=== PATIENT | female | born 1965 | race Caucasian/White ===

== ENCOUNTER 2024-10-20 17:07 | Outpatient (AMB) | payer OTHER, SELFPAY ==
--- NOTE | 2024-10-20 17:09 | MHC.PC.OV ---
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 Accompanied by: Self / Same As Patient Allergies morphine Allergy (Severe, Verified 10/20/24 17:24) Headache Sulfa (Sulfonamide Antibiotics) Allergy (Mild, Verified 10/20/24 17:24) rash Medication List - Last Reconciled 10/20/24 by Sonia Bianchi MD alprazolam 0.5 mg PO DAILY cholecalciferol (vitamin D3) 1,250 mcg PO QWEEK hydrochlorothiazide 25 mg PO DAILY 90 days magnesium citrate 100 mg PO DAILY multivitamin caps PO omeprazole 20 mg PO DAILY trazodone 50 mg PO BEDTIME Tobacco use date assessed: 10/20/24 Dental Screening Dental Screen Date: 10/20/24 Did you have a dental visit in the last 12 months?: Yes Did you have a dental problem in the last 6 months where you did not have access to dental care?: No Was dental information given to patient?: Patient has dentist HPI HPI Comments History of Present Illness Details This is a 59-year-old female with hypertension, mild major depression and anxiety that comes today to establish care. The depression is very very mild and is well control. No need for counseling or medication at the moment. Anxiety stable with benzodiazepines as needed and she is aware can cause memory loss. She complains of a right foot lesion that has been present for months and will be referred to Podiatry. She also has skin lesion that was removed about a year ago and needs follow-up with dermatology. She also complains of occasional chest pain pressure like in quality in the middle of the chest that can happen at rest. She also has GERD stable with PPIs. [facility]LY [facility] Surgical History History of tubal ligation History of cholecystectomy History of tonsillectomy Family History Mother COPD (chronic obstructive pulmonary disease) Emphysema, unspecified Hypertension Father Substance use disorder Social History Housing: House Alcohol intake: current Alcohol intake frequency: a few times a month Alcohol type: wine and other Patient Tobacco Use Status: Former Tobacco user Tobacco use type: Cigarette e-Cigarette/Vaping Use: Never Used Second Hand Smoke Exposure: No service: No Current occupational status: employed Cognitive needs: No Hearing needs: No Vision needs: Yes Questionnaire PHQ-9 Over the last 2 weeks, how often have you been bothered by any of the following problems? 1. Little interest or pleasure in doing things: not at all 2. Feeling down, depressed, or hopeless: several days 3. Trouble falling or staying asleep, or sleeping too much: nearly every day 4. Feeling tired or having little energy: more than half the days 5. Poor appetite or overeating: not at all 6. Feeling bad about yourself - or that you are a failure or have let yourself or your family down: not at all 7. Trouble concentrating on things, such as reading the newspaper or watching television: not at all 8. Moving or speaking so slowly that other people could have noticed. Or the opposite - being so fidgety or restless that you have been moving around a lot more than usual: not at all 9. Thoughts that you would be better off or of hurting yourself in some way: not at all Total score: 6 Depression Screening Interpretation: Positive Depression Screening Follow-up: Existing condition and Follow-up Visit Requested Depression Screening Done: Yes 00523 - PHQ-9 Billing: Yes Source: Developed by Drs. Kahlil Elias, Tere Richardson, Rylan Shah and colleagues, with an educational manuelito from [employer]. Thrive Questionnaire Date Thrive assessed: 10/20/24 I am a: Patient What is your living situation today?: I have a steady place to live Within the past 12 months, did the food you bought not last and you didn't have the money to get more?: Never true Within the past 12 months, did you worry whether your food would run out before you got money to buy more?: Never true Do you have trouble paying for medicines?: No Do you have trouble getting transportation to medical appointments?: No Do you have trouble paying your heating and electricity bill?: No Do you have trouble taking care of your child, family member or friend?: No Do you have trouble with day-to-day activities such as bathing, preparing meals, shopping, managing finances, etc.?: No Are you currently unemployed and looking for a job?: No Are you interested in more education?: No Please select the resources that you would like help with: None Currently or been in a relationship where the following occur: No concerns reported and I choose not to answer THRIVE Score: 0 AUDIT C Alcohol Use Questionnaire (AUDIT-C) 1. How often do you have a drink containing alcohol?: 2-4 times a month 2. How many drinks containing alcohol do you have on a typical day when you are drinking?: 1 or 2 3. How often do you have six or more drinks on one occasion?: Never Total Score: 2 BRUCE-7 AMB Questionnaire BRUCE-7 Date BRUCE - 7 assessed: 10/20/24 Feeling nervous, anxious, or on edge: 2 = More than half the days Not being able to stop or control worryin = More than half the days Worrying too much about different things: 2 = More than half the days Trouble relaxin = More than half the days Being so restless that it is hard to sit still: 0 = Not at all Becoming easily annoyed or irritable: 2 = More than half the days Feeling afraid as if something awful might happen: 1 = Several days Total BRUCE-7 score (0-4 normal; 5-9 mild; 10-14 moderate; 15-21 severe): 11 Source: Developed by Drs. Kahlil Elias, Tere Richardson, Rylan Shah and colleagues, with an educational manuelito from [employer]. BRUCE-7 Assessment Billing BRUCE-7 Assessment Tool: BRUCE-7 Assessment 81148 Review of Systems Const All systems reviewed & are unremarkable except as noted in HPI and below Card Denies chest pain at rest, Denies chest pain with activity, Denies edema, Denies irregular heart rhythm, Denies claudication, Denies dyspnea, Denies dyspnea on exertion, Denies orthopnea, Denies paroxysmal nocturnal dyspnea and Denies slow heart rate Resp Denies cough, Denies dyspnea and Denies dyspnea on exertion GI Denies abdominal pain, Denies change in bowel habits, Denies excessive flatus, Denies nausea and Denies vomiting Denies urinary incontinence, Denies urinary hesitancy and Denies urinary urgency Musc Denies abnormal gait, Denies atrophy, Denies deformity and Denies limited range of motion Skin/Breast Denies bleeding lesions, Denies changing lesions and Denies rash Neuro Denies abnormal gait, Denies behavioral changes and Denies lack of coordination Psych Denies behavioral changes Physical exam (Primary Care) Vital Signs: Last Vital Signs BP 158/76 H 10/20/24 17:11 BMI result Body Mass Index 28.0 Tobacco/Smoking Status: Tobacco use Status Tobacco use date assessed 10/20/24 10/20/24 17:22 Patient Tobacco Use Status Former Tobacco user 10/20/24 17:22 Tobacco use type Cigarette 10/20/24 17:22 e-Cigarette/Vaping Use Never Used 10/20/24 17:22 PHQ-9: PHQ-9 Score PHQ-9: Total score 6 10/20/24 17:30 Depression Screening Interpretation: Positive Depression Screening Follow-up: Existing condition and Follow-up Visit Requested Thrive Assessment: Date of Thrive Assessment Date Thrive assessed 10/20/24 10/20/24 17:22 Currently or been in a relationship where the following occur: No concerns reported and I choose not to answer Resp Effort & Inspection: normal respiratory effort Auscultation: clear to auscultation bilaterally Cardio Jugular venous distension: no JVD Rate: regular rate Rhythm: regular rhythm Heart sounds: S1 normal heart sound present and S2 normal heart sound present Extrem General: Yes full ROM Coding Level of Care Code New Pt Level 4 (86385) Complex EM visit Add On G2211 Diagnoses BRUCE (generalized anxiety disorder) F41.1 Mild major depression F32.0 Essential hypertension I10 Skin lesion L98.9 Foot lesion L98.9 Chest pain R07.9 Additional Codes BRUCE-7 Assessment Billing - BRUCE-7 Assessment Tool: BRUCE-7 Assessment 53738 ([id number]) PHQ-9 - 09380 - PHQ-9 Billing: Yes ([id number]) Time Spent (min) 23 Assessment & Plan Assessment & Plan (1) BRUCE (generalized anxiety disorder): Code(s): F41.1 - Generalized anxiety disorder Category: Medical (2) Mild major depression: Code(s): F32.0 - Major depressive disorder, single episode, mild Category: Medical (3) Essential hypertension: Code(s): I10 - Essential (primary) hypertension Category: Medical (4) Skin lesion: Code(s): L98.9 - Disorder of the skin and subcutaneous tissue, unspecified Category: Medical (5) Foot lesion: Code(s): L98.9 - Disorder of the skin and subcutaneous tissue, unspecified Category: Medical (6) Chest pain: Code(s): R07.9 - Chest pain, unspecified Category: Medical Plan Continue current medications. EKG order for chest pain. Referred to Podiatry for foot lesion. Referred to dermatology for skin lesion. Fasting labs ordered. Mammogram was done less than a year ago and was normal. Colonoscopy up-to-date. Also had endoscopy due to heartburn. Pap smear also up-to-date. Orders: Orders XR foot RT 2V 10/20/24 L98.9 - Disorder of the skin and subcutaneous tissue, unspecified ECG 12 lead EKG 10/20/24 I10 - Essential (primary) hypertension, R07.9 - Chest pain, unspecified Lipid Panel 10/20/24 E78.5 - Hyperlipidemia, unspecified, I10 - Essential (primary) hypertension Vitamin D 25-OH Total 10/20/24 E55.9 - Vitamin D deficiency, unspecified Comprehensive [place]. Panel Fast 10/20/24 I10 - Essential (primary) hypertension Referrals Podiatry Referral L98.9 - Disorder of the skin and subcutaneous tissue, unspecified Dermatology Referral L98.9 - Disorder of the skin and subcutaneous tissue, unspecified Medications: New alprazolam 0.5 mg PO DAILY 30 days 30 tabs 0RF
[2024-10-20 17:11] VITALS: BP 158/76; BMI 28.0
--- OUTSIDE RECORDS SUMMARY | 2024-10-20 18:21 | XMS_ITS | Referral Summary ---
Author Organization [facility] Address [address] [place] [address] Care Team Providers Care Insert Cutter Name Role Phone Cassandra Louise MD Primary Care Provider [phone]- [phone] Encounters Date Type Department Care Team Description 10/06/2024 [facility] Message [facility] D[facility]atology [address] [place] [address] Leidy Post PA Re-scheduling October 17, 2024 Appointment 07/21/2024 [facility] Message [address] [address] Mychart, Generic Provider Release of Medical records form from Last 3 Months Allergies Active Allergy Reactions Criticality Noted Date Comments Acetazolamide Unknown Nitrofurantoin Monohyd/M-Cryst Rash High 04/02/2021 Petechial rash 04/02/2021 Sulfa (Sulfonamide Antibiotics) Unknown Medications magnesium citrate 100 mg capsule Take by mouth. Active cholecalciferol (VITAMIN D3) 1,250 mcg (50,000 unit) capsule Take 50,000 Units by mouth once a week. Active multivitamin capsule Take 1 capsule by mouth once a day. Active omeprazole OTC (PriLOSEC OTC) 20 mg EC tablet Take 1 tablet (20 mg total) by mouth once a day. 30 tablet 08/05/19 Active hydroCHLOROthiazid e (HYDRODIURIL) 25 mg tablet Take 1 tablet (25 mg total) by mouth once a day. 90 tablet 3 08/26/19 24 Active meclizine (ANTIVERT) 25 mg tablet Take 1 tablet (25 mg total) by mouth 3 times a day as needed for dizziness. 30 tablet 1 08/26/19 24 Active Additional Information Patient not taking.Reported on 03/30/2024 ALPRAZolam (XANAX) 0.5 mg tablet Take 1 tablet (0.5 mg total) by mouth daily as needed for anxiety. 30 tablet 1 10/07/19 24 Active traZODone (DESYREL) 50 mg tablet Take 1 tablet (50 mg total) by mouth nightly as needed for sleep. 30 tablet 5 03/30/20 24 Active RIMEGEPANT ODT (NURTEC ODT) 75 MG DISINTEGRATING TABLETIndications: Migraine without status migrainosus, not intractable, unspecified migraine type Dissolve 1 tablet (75 mg total) in the mouth daily as needed (migraine). 16 tablet 5 03/31/20 24 Active Active Problems Problem Noted Date Diagnosed Date Trouble in sleeping 03/31/2024 Vertigo 08/27/2023 Hypertension 08/27/2023 Left hip pain 03/12/2021 Seborrheic keratoses, inflamed 03/26/2017 Urinary tract infection 10/15/2016 Pharyngitis 09/22/2016 Anxiety, generalized 07/04/2016 Colon cancer screening 03/25/2016 Seborrheic keratosis 03/18/2016 Neoplasm of uncertain behavior 02/13/2014 Allergic rhinitis 10/04/2013 Headache 10/04/2013 Esophageal reflux 01/20/2013 Urinary incontinence 11/02/2012 Pain, joint, shoulder 06/01/2012 Abdominal pain 06/01/2012 Chronic sinusitis 09/09/2008 Acne 09/09/2008 Migraine headache 09/09/2008 Lumbago 09/09/2008 Resolved Problems Problem Noted Date Diagnosed Date Resolved Date White coat syndrome with hypertension 2016 10/07/2023 Immunizations Immunization Administration Dates Next Due Covid-19, Pfizer, mRNA, [place] valent, PF 30 mcg/0.3 mL dose (for ages 12 and older) 09/11/2020,08/14/2020 Diphtheria and Tetanus Toxoi ds, Adsorbed for Pediatric Use 06/08/2003,11/27/1997 INFLUENZA, SPLIT VIRUS, TRIVALENT, PF 03/25/2016 ,05/16/2014,01/20/2013 Influenza, Injectable, Madin Chloé Canine Kidney, Preservative Free, Quadrivalent 02/21/2022 Influenza, Injectable, Quadr ivalent, Contains Preservative 04/24/2023,03/11/2021,04/12/2020,2017 Influenza, Trivalent, MDV, Injectable 03/30/2024 Measles, Mumps, and Rubella Vaccine 06/27/2000,0 06/25/2000 Tetanus Toxoid, Reduced Diph theria Toxoid, and Acellular Pertussis Vaccine, Adsorbed 11/09/2017 Tuberculin Skin Test; Purifi ed Protein Derivative Solution, Intradermal 09/07/1995 Zoster Vaccine Recombinant 05/01/2022,02/21/2022 Social History Tobacco Use Types Packs/Day Years Used Date Smoking Tobacco: Former Smokeless Tobacco: Former Tobacco Cessation:Counseling Given: Not Answered Comments:: Alcohol Use Standard Drinks/Week Comments Yes 1 (1 standard drink = 0.6 oz pur e alcohol) socially [facility] blogTVities Answer Date Recorded In the past 12 months has th e electric, gas, oil, or water company threatened to shut off services in your home? No 09/28/2023 Hunger Vital Sign Answer Date Recorded Within the past 12 months, y ou worried that your food would run out before you got the money to buy more. Never true 09/28/19 24 Within the past 12 months, t he food you bought just didn't last and you didn't have money to get more. Never true 09/28/2023 Transportation Answer Date Recorded In the past 12 months, has l ack of reliable transportation kept you from medical appointments, meetings, work or from getting things needed for daily living? No 09/28/2023 Housing Answer Date Recorded Housing Risk Low 2 09/28/2023 Housing Risk Medium Not on file 09/28/2023 Housing Risk High Not on file 09/28/2023 What is your living situation today? 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 Not on file Not on file Last Filed Vital Signs Vital Sign Reading Time Taken Comments Blood Pressure 138/88 03/30/2024 2:55 PM EST Pulse 83 03/30/2024 2:55 PM EST Temperature 36.7 ??C (98 ??F) 03/30/2024 2:55 PM EST Respiratory Rate 18 03/30/2024 2:55 PM EST Oxygen Saturation 98% 03/30/2024 2:55 PM EST Inhaled Oxygen Concentration - - Weight 76.9 kg (169 lb 9.6 oz) 03/30/2024 2:55 P M EST Height 165.1 cm (5' 5 ) 08/03/2023 11:57 AM EDT Body Mass Index 28.22 08/03/2023 11:57 AM EDT Plan of Treatment Upcoming Encounters Date Type Department Care Team (Late st Contact Info) Description 10/27/2024 9:00 AM EDT Office Visit [facility] Dermatology [address] [place] [address] Leidy Post PA [address] [place] [id number] 01/02/2025 8:00 AM EDT Appointment [facility] Mammography [address] [place] [address] 04/13/2025 8:30 AM EST Office Visit [facility] [address] Department [address] [facility] [place] [address] Miladys Neal MD [address] [place] [address] Procedures * Due to [place] state law, this organization might not be sharing negative HIV tests. Procedure Name Priority Date/Time Associated Diagnosis Comments BLAYNE BILATERAL SCREENING DIGITAL MAMMOGRAM WITH MASON Routine 12/28/2023 8:05 AM EDT Encounter for screening mammogram for malignant neoplasm of breast BASIC METABOLIC PANEL Routine 10/06/2023 8:48 AM EDT Hypertension, unspecified type Hypokalemia [facility] PAP TEST AND HPV, MRNA E6/E7 Routine 03/09/2023 3:43 PM EDT Encounter for gynecological examination without abnormal finding Screening for cervical cancer COLONOSCOPY 02/11/2021 HEPATITIS C ANTIBODY, CONVERSION Routine 02/09/2012 12:15 PM EDT from Last 3 Months or Most Recently Relevant to Health Maintenance Results * Due to [place] state law, this organization might not be sharing negative HIV tests. * BLAYNE Bilateral Screening Digital Mammogram With Mason (12/28/2023 8:05 AM EDT) Anatomical Region Laterality Modality Breast Bilateral Mammography Narrative 01/03/2024 3:44 PM EDT EXAMINATION BLAYNE Bilateral Screening Digital Mammogram With Mason. INDICATION Mellissa Hurley is a 58 y.o. female and is seen for: BLAYNE Bilateral Screening Digital Mammogram With Mason. CC and MLO views were obtained. FDA approved Transpara?? AI (artificial intelligence) software and R2 CAD were used as a concurrent reading aid in the interpretation of this study. COMPARISON Compared to: 12/19/2022 BLAYNE Bilateral Screening Digital Mammogram With Mason, 12/09/2021 BLAYNE Bilateral Screening Digital Mammogram With Mason, 12/03/2020 BLAYNE Bilateral Screening Digital Mammogram, 12/01/2019 BLAYNE Bilateral Screening Digital Mammogram, and 11/29/2018 BLAYNE Bilateral Screening Digital Mammogram Bilateral Breast Findings: There are scattered areas of fibroglandular density. No significant masses, calcifications or other abnormalities are seen. IMPRESSION BI-RADS?? ATLAS category (overall): 1 - Negative MANAGEMENT Routine Screening Mammogram in 1 Year is recommended for bilateral. ??The patient was entered into a reminder system with a target date for their next mammogram. Patient has a TYRER CUZICK RISK ASSESSMENT SCORE of Tyrer-Cuzick: 8.14%. If the personal lifetime risk is more than 20%, according to ACS, NCCN and ACR guidelines, annual screening breast MRI is recommended in addition to annual mammography. If this radiology report contains a blank impression section, it is an incomplete radiology report. ??Please contact the interpreting radiologist or applicable radiology division as soon as possible to obtain the completed interpretation. Cassandra Louise MD IMG BI PROCEDURES Final Re sult * (ABNORMAL) Basic Metabolic Panel (10/06/2023 8:48 AM EDT) Glucose 112(H) 65 - 99 mg/dL 10/06/2023 6:37 PM [employer] [facility] Comment: ? Fasting reference interval For someone without known diabetes, a glucose value between 100 and 125 mg/dL is consistent with prediabetes and should be confirmed with a follow-up test. BUN 16 7 - 25 mg/dL 10/06/2023 6:37 PM [employer] Creatinine 0.97 0.50 - 1.03 mg/dL 10/06/2023 6:37 PM [employer] [facility] eGFR 68 > OR = 60 mL/min/1. 73m2 10/06/2023 6:37 PM [employer] [facility] Bun/Creatinine Ratio SEE NOTE: 6 - 22 (calc) 10/06/2023 6:37 PM [employer] [facility] Comment: ?? Not Reported: BUN and Creatinine are within ?? reference range. ? Sodium 139 135 - 146 mmol/L 10/06/2023 6:37 PM [employer] [facility] Potassium 4.3 3.5 - 5.3 mmol/L 10/06/2023 6:37 PM [employer] [facility] Chloride 99 98 - 110 mmol/L 10/06/2023 6:37 PM [employer] [facility] Carbon Dioxide 29 20 - 32 mmol/L 10/06/2023 6:37 PM [employer] [facility] Calcium 9.5 8.6 - 10.4 mg/dL 10/06/2023 6:37 PM [employer] Blood Structure of peripheral vein / Unknown 10/06/2023 8:48 AM EDT 10/06/2023 4:21 PM EDT Narrative [facility] - 10/06/2023 6:58 PM EDT FASTING:YES us Cassandra Louise MD LAB BLOOD ORDERABLES Final Result [facility] [address] [facility] 3rd Floor, [place] [address], [facility] [address] [place] [address] * [employer] Pap Test and HPV, mRNA E6/E7 (03/09/2023 3:43 PM EDT) [facility] Test and HPV, MRNA E6/E7 See Below [facility] Comment: TP TIS mRNA E6/E7 ?? CLINICAL INFORMATION: ? None given ?? LMP: ? NONE GIVEN ?? PREV. PAP: ? NONE GIVEN ?? PREV. BX: ? NONE GIVEN ?? SOURCE: ? Cervix, Endocervix ?? STATEMENT OF ADEQUACY: ? Satisfactory for evaluation. ? Endocervical/transformation zone component ? present. ?? INTERPRETATION/RESULT: ? Cytology Results: Negative for intraepithelial ? lesion or malignancy. ?? COMMENT: ? This Pap test has been evaluated with computer ? assisted technology. ?? APARTMENT LEASING AGENT: ? SXA, CT(ASCP) ? CT screening location: [facility] ? [address] [facility] ? [place], [place] ??[address] ?? HPV mRNA E6/E7 ? Not Detected ? REFERENCE RANGE: Not Detected ? Methodology: Data Governance Consultant-Mediated Amplification ? This assay detects E6/E7 viral messenger RNA (mRNA) from 14 ? high-risk HPV types (16,18,31,33,35,39,45,51,52,56,58,59,66,68). ? Cervical sources are required for HPV testing. ? If a vaginal source from a patient who has had a ? total hysterectomy with removal of cervix was ? submitted, please contact the testing laboratory ? for alternative testing options. ? For additional information, please refer to ? http://education.Datahug/faq/ACP332s4 ? (This link if provided for information/ ? educational purposes only.) ? EXPLANATORY NOTE: ? The Pap is a screening test for cervical cancer. It is ? not a diagnostic test and is subject to false negative ? and false positive results. It is most reliable when a ? satisfactory sample, regularly obtained, is submitted ? with relevant clinical findings and history, and when ? the Pap result is evaluated along with historic and ? current clinical information. ? Brushing Cervix uteri structure / Unknown 03/09/2023 3:43 PM EDT Tracy Allison MD LAB [facility] OR DERABLES Final Result [facility] [address] [facility] 3rd Floor, [place] [address], [employer] [facility] [address] [place] [address] * COLONOSCOPY (02/11/2021) Narrative Procedure Note Curt Almodovar MD - 02/11/2021 1:00 PM EDT [facility] Patient Name: Mellissa Hurley Procedure Date: 02/11/2021 1:00 PM Date of : 1965 Admit Type: Outpatient Age: 55 Room: [place] [id number] Gender: Female Note Status: Finalized Attending MD: Curt Almodovar MD Procedure: Colonoscopy Indications: Screening for colorectal malignant neoplasm Providers: Curt Almodovar MD Referring MD: Cassandra Louise MD (Referring MD) Requesting Provider: Medicines: Propofol per Anesthesia Complications: No immediate complications. Procedure: After I obtained informed consent, the scope was passed under direct vision. Throughout the procedure, the patient's blood pressure, pulse, and oxygen saturations were monitored continuously. The colonoscope was introduced through the anus and advanced to the cecum, identified by appendiceal orifice and ileocecal valve.The colonoscopy was performed without difficulty. Thepatient tolerated the procedure well. The quality of the bowel preparation was good. The bowel preparation used was Miralax. The entire colon was well visualized. Findings: The perianal and digital rectal examinations were normal. Multiple small and large-mouthed diverticula were found in thesigmoid colon and descending colon. The retroflexed view of the distal rectum and anal verge was normaland showed no anal or rectal abnormalities. The terminal ileum appeared normal. Impression: - Diverticulosis in the sigmoid colon and in the descending colon. - The distal rectum and anal verge are normal on retroflexion view. - The examined portion of the ileum was normal. - No specimens collected. Recommendation: - Discharge patient to home (ambulatory). - Continue present medications. - Repeat colonoscopy in 10 years for screeningpurposes. Curt Almodovar MD 02/11/2021 1:56:45 PM This report has been signed electronically. Number of Addenda: 0 Note Initiated On: 02/11/2021 1:00 PM Estimated Blood Loss: Estimated blood loss: none. us Curt Almodovar MD PROVATION PROCEDURES Final Resu lt * HEPATITIS C ANTIBODY, CONVERSION (02/09/2012 12:15 PM EDT) Hepatitis C Antibody 0.07 <1.00 [facility] HCV Interpretation Negative [facility] Comment: Not infected with HCV, unless recent infection is suspected or other evidence exists to indicate HCV infection. 02/09/2012 12:1 5 PM EDT 02/09/2012 1:34 PM EDT us Cassandra Louise MD LAB HISTORICAL RESULTS Fin al Result [facility] [address] [place] [address], from Last 3 Months or Most Recently Relevant to Health Maintenance Insurance [place] [id number] Care Teams Insert Cutter Relationship Specialty Start Date End Date Cassandra Louise MD PCP - General Family Medicine 11/27/16
== END 2024-10-20 17:44 | disposition home or self-care (01) ==
LOC: HO.HMCH 17:07
PROVIDERS: PCP Internal Medicine; Visit Provider Internal Medicine
DX: F41.1 Generalized anxiety disorder (principal); F32.0 Major depressive disorder, single episode, mild; I10 Essential (primary) hypertension; L98.9 Disorder of the skin and subcutaneous tissue, unspecified; R07.9 Chest pain, unspecified

== ENCOUNTER → 2024-10-20 17:07 | Outpatient (BNVA) | payer OTHER, SELFPAY | PROVIDERS: PCP Internal Medicine; Visit Provider Internal Medicine | DX: I10 Essential (primary) hypertension (principal); F32.A Depression, unspecified; K21.9 Gastro-esophageal reflux disease without esophagitis; F41.1 Generalized anxiety disorder; F32.0 Major depressive disorder, single episode, mild; L98.9 Disorder of the skin and subcutaneous tissue, unspecified; R07.9 Chest pain, unspecified; E55.9 Vitamin D deficiency, unspecified; E78.5 Hyperlipidemia, unspecified | CPT/HCPCS: 96127 ==

== ENCOUNTER 2024-11-04 07:52 | Outpatient (REF) | payer OTHER, SELFPAY ==
--- NOTE | ~2024-11-04 | XR_ITS ---
EXAMINATION: XR FOOT, RIGHT CLINICAL INFORMATION: L98.9 - Disorder of the skin and subcutaneous tissue, unspecified COMPARISON: None available. TECHNIQUE: AP, lateral, and oblique views of the right foot. FINDINGS: No acute cortical disruption or malalignment. Asymmetric joint space narrowing involving the proximal and distal interphalangeal joints of the third and fourth toes. Small exostosis at the Achilles tendon insertion. No joint effusion. Small spur, calcaneus. No subcutaneous emphysema. No metallic or radiopaque foreign body. XR/XR foot RT 2V IMPRESSION: Mild osteoarthrosis. Probable minimal enthesopathy, Achilles tendon. Electronically signed by: Casper Wiggins MD 11/04/2024 09:57 AM EDT
--- OUTSIDE RECORDS SUMMARY | 2024-11-04 07:58 | XMS_ITS | Referral Summary ---
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 30 tablet 08/05/19 23 Active hydroCHLOROthiazid e (HYDRODIURIL) 25 mg tablet Take 1 tablet (25 mg total) by mouth once a day. 90 tablet 3 08/26/19 24 Active meclizine (ANTIVERT) 25 mg tablet Take 1 tablet (25 mg total) by mouth 3 times a day as needed for dizziness. 30 tablet 1 08/26/19 24 Active ALPRAZolam (XANAX) 0.5 mg tablet Take 1 [...] (migraine). 16 tablet 5 03/31/20 24 Active tretinoin (RETIN-A) 0.025 % creamIndications:F acial aging Apply PEA-SIZED amount to a clean, dry face starting 3x per week at night such as //, then slowly increase ONLY TOLERATED to nightly use. Use a moisturizer on top of medication to help with irritation and dryness. If noticing significant peeling or irritation, decrease use. 45 g 5 10/28/19 25 Active Active Problems Problem Noted Date Diagnosed [...] Administration Dates Next Due Covid-19, Pfizer, mRNA, Mower valent, PF 30 mcg/0.3 mL dose (for [...] Pertussis Vaccine, Adsorbed 11/09/2017 Tuberculin Skin Test; Bi ed Protein Derivative Solution, Intradermal 09/07/1995 Zoster Vaccine Recombinant 05/01/2022,02/21/2022 Social History Tobacco Use Types Packs/Day Years Used Date Smoking Tobacco: Former Smokeless Tobacco: Former Tobacco Cessation:Counseling Given: Not Answered Comments:: Alcohol Use Standard Drinks/Week Comments Yes 1 (1 standard drink = 0.6 oz pur e alcohol) socially [facility] Utilities Answer Date Recorded In the past 12 months has e [employer], gas, oil, or water [employer] threatened to shut off services in your [...] 83 03/30/2024 2:55 PM EST Temperature 36.7 C (98 F) 03/30/2024 2:55 PM EST Respiratory Rate 18 [...] Care Team (Late st Contact Info) Description 01/02/2025 8:00 AM EDT Appointment [address] [address] 04/13/2025 8:30 AM EST Office Visit [facility] [address] [place] [phone] Miladys Neal MD [address] [place] [id number] 05/19/2025 8:30 AM EST Office Visit [facility] Dermatology [address] [place] [address] Leidy Post PA [address] [place] [address] Procedures * Due to [facility] law, this organization might not be sharing [...] to Health Maintenance Results * Due to [place] state law, this organization might not be [...] and MLO views were obtained. FDA approved [employer] AI (artificial intelligence) software and R2 CAD were used as a concurrent reading aid in the interpretation of this study. COMPARISON Compared to: 12/19/2022 [facility] Bilateral Screening Digital Mammogram With Mason, 12/09/2021 [facility] Bilateral Screening Digital Mammogram With Msaon, 12/03/2020 [facility] Bilateral Screening Digital Mammogram, 12/01/2019 [facility] Bilateral Screening Digital Mammogram, and 11/29/2018 [facility] Bilateral Screening Digital Mammogram Bilateral Breast Findings: There are scattered areas of fibroglandular density. No significant masses, calcifications or other abnormalities are seen. IMPRESSION BI-RADS ATLAS category (overall): 1 - Negative MANAGEMENT Routine Screening Mammogram in 1 Year is recommended for bilateral. The patient was entered into a reminder system [...] section, it is an incomplete radiology report. Please contact the interpreting radiologist or applicable radiology division as soon as possible to obtain the completed interpretation. us Cassandra Louise MD IMG BI PROCEDURES Final Re sult * (ABNORMAL) Basic Metabolic Panel (10/06/2023 8:48 AM EDT) Glucose 112(H) 65 - 99 mg/dL 10/06/2023 6:37 PM EDT [email or web address] Comment: Fasting reference interval For someone without known diabetes, a glucose value between 100 and 125 mg/dL is consistent with prediabetes and should be confirmed with a follow-up test. BUN 16 7 - 25 mg/dL 10/06/2023 6:37 PM [facility] Creatinine 0.97 0.50 - 1.03 mg/dL 10/06/2023 6:37 PM [facility] eGFR 68 > OR = 60 mL/min/1. 73m2 10/06/2023 6:37 PM [facility] Bun/Creatinine Ratio SEE NOTE: 6 (calc) 10/06/2023 6:37 PM [facility] Comment: Not Reported: BUN and Creatinine are within reference range. Sodium 139 135 - 146 mmol/L 10/06/2023 6:37 PM EDT [email or web address] Potassium 4.3 3.5 - 5.3 mmol/L 10/06/2023 6:37 PM [facility] Chloride 99 98 - 110 mmol/L 10/06/2023 6:37 PM EDT [facility] Carbon Dioxide 29 20 - 32 mmol/L 10/06/2023 6:37 PM EDT [facility] Calcium 9.5 8.6 - 10.4 mg/dL 10/06/2023 6:37 PM EDT [facility] Blood Structure of peripheral vein / Unknown 10/06/2023 8:48 AM EDT 10/06/2023 4:21 PM EDT Narrative [facility] - 10/06/2023 6:58 PM EDT FASTING:YES us Cassandra Louise MD LAB BLOOD ORDERABLES Final Result [facility] [address] [place] [address] [address] Floor, [place] [address], [place] [phone] [facility] [address] [address] * [facility] Pap Test and HPV, mRNA E6/E7 (03/09/2023 3:43 PM EDT) [facility] Test and HPV, MRNA E6/E7 See Below [facility] Comment: TP TIS mRNA E6/E7 CLINICAL INFORMATION: None given LMP: NONE GIVEN PREV. PAP: NONE GIVEN PREV. BX: NONE GIVEN SOURCE: Cervix, Endocervix STATEMENT OF ADEQUACY: Satisfactory for evaluation. Endocervical/transformation zone component present. INTERPRETATION/RESULT: Cytology Results: Negative for intraepithelial lesion or malignancy. COMMENT: This Pap test has been evaluated with computer assisted technology. CORRECTIONAL GUARD: JAHAIRA LEON(ASCP) CT screening location: [place] [address] HPV mRNA E6/E7 Not Detected REFERENCE RANGE: Not Detected Methodology: Fruit Harvester-Mediated Amplification This assay detects E6/E7 viral messenger RNA (mRNA) from 14 high-risk HPV types (16,18,31,33,35,39,45,51,52,56,58,59,66,68). Cervical sources are required for HPV testing. If a vaginal source from a patient who has had a total hysterectomy with removal of cervix was submitted, please contact the testing laboratory for alternative testing options. For additional information, please refer to http://education.MyRegistry.com/faq/STE116n4 (This link if provided for information/ educational purposes only.) EXPLANATORY NOTE: The Pap is a screening test for cervical cancer. It is not a diagnostic test and is subject to false negative and false positive results. It is most reliable when a satisfactory sample, regularly obtained, is submitted with relevant clinical findings and history, and when the Pap result is evaluated along with historic and current clinical information. Brushing Cervix uteri structure / Unknown 03/09/2023 3:43 PM EDT us Tracy Allison MD LAB [facility] Final Result [facility] [address], [place] [address], [place] [phone] [facility] [address] [place] [address] * COLONOSCOPY (02/11/2021) Narrative Procedure Note Curt Almodovar MD - 02/11/2021 1:00 PM EDT [facility] Patient Name: Mellissa Hurley Procedure Date: 02/11/2021 1:00 PM Date of : 1965 Admit Type: Outpatient Age: 55 Room: [place] [address] Gender: Female Note Status: Finalized Attending MD: [...] PM EDT) Hepatitis C Antibody 0.07 <1.00 [facility] HCV Interpretation Negative [facility] Comment: Not infected with HCV, unless recent infection is suspected or other evidence exists to indicate HCV infection. 02/09/2012 12:1 5 PM EDT 02/09/2012 1:34 PM EDT us Cassandra Louise MD LAB HISTORICAL RESULTS Fin al Result [facility] [address] [place] [address], from Last 3 Months or Most Recently Relevant to Health Maintenance Insurance [facility] Care Teams Maintenance Worker Relationship Specialty Start Date End Date Cassandra Louise MD PCP - General Family Medicine 11/27/16
--- NOTE | 2024-11-04 08:01 | ECG_ITS ---
Test Reason : I10 HTN Blood Pressure : */* mmHG Vent. Rate : 75 BPM Atrial Rate : 75 BPM P-R Int : 148 ms QRS Dur : 74 ms QT Int : 386 ms P-R-T Axes : 64 48 64 degrees QTcB Int : 431 ms Normal sinus rhythm Normal ECG No previous ECGs available Referred By: Sonia Bianchi Electronically Signed By: NELSON ATWOOD
[2024-11-04 08:45] LABS: Alanine Aminotransferase 45 U/L (0-31); Albumin Level 4.4 g/dL (3.5-5.0); Alkaline Phosphatase 89 U/L (39-117); Anion Gap 13 (12-20); Aspartate Amino Transferase 31 U/L (5-31); Bilirubin Total 0.7 mg/dL (0.0-1.0); Blood Urea Nitrogen 15 mg/dL (9-16); Carbon Dioxide 29 mmol/L (22-29); Chloride 103 mmol/L (96-108); Cholesterol 229 mg/dL (<200); Estimated Glomerular Filt Rate > 60; Glucose Fasting 132 mg/dL (60-99); HDL Cholesterol 57 mg/dL (>40); LDL Cholesterol Calculated 154 mg/dL (<100); Potassium 3.8 mmol/L (3.3-5.1); Sodium 141 mmol/L (135-145); Total Protein 6.9 g/dL (6.5-8.0); Triglycerides 91 mg/dL (<150)
[2024-11-04 08:50] LABS: Vitamin D 25-OH Total 45.9 ng/mL (>30)
== END 2024-11-04 07:53 | disposition home or self-care (01) ==
LOC: HO.XRAY 07:52
PROVIDERS: PCP Internal Medicine; Visit Provider Internal Medicine
DX: I10 Essential (primary) hypertension (principal); E78.5 Hyperlipidemia, unspecified; E55.9 Vitamin D deficiency, unspecified; R07.9 Chest pain, unspecified; L98.9 Disorder of the skin and subcutaneous tissue, unspecified
CPT/HCPCS: 36415; 73620; 80053; 80061; 82306; 93005

== ENCOUNTER → 2024-11-04 08:01 | Outpatient (BNV) | payer OTHER, SELFPAY | PROVIDERS: PCP Internal Medicine; Visit Provider Internal Medicine | DX: I10 Essential (primary) hypertension (principal) | CPT/HCPCS: 93010 ==

== ENCOUNTER → 2024-11-04 08:27 | Outpatient (BNV) | payer OTHER, SELFPAY | PROVIDERS: PCP Internal Medicine; Visit Provider Radiology Diagnostic Radiology | DX: M19.071 Primary osteoarthritis, right ankle and foot (principal) | CPT/HCPCS: 73620 ==